=== PATIENT | female | born 1980 | race Caucasian/White ===

== ENCOUNTER 2020-09-14 20:37 | Emergency (ER) | payer OTHER ==
[~2020-09-14 20:37] MED LIST: NORCO 5-325 TA1 EACH PO; PENICILLIN V P500 MG PO
[2020-09-14] MEDS ORDERED: CEPHALEXIN500 M1 PO (21:48)
[2020-09-14] MEDS ORDERED: BACTRIM DS TAB1 EACH PO (21:48)
== END 2020-09-14 22:00 | disposition home or self-care (01) ==
LOC: FER 20:37
DX: L03.012 Cellulitis of left finger (principal); I10 Essential (primary) hypertension; Z23 Encounter for immunization
CPT/HCPCS: 90471; 90715; 99283

== ENCOUNTER 2021-12-27 19:33 | Emergency (ER) | payer SELFPAY ==
[~2021-12-27 19:33] MED LIST changes: +BACTRIM DS TAB1 EACH PO; +CEPHALEXIN500 M1 PO
[2021-12-27 23:13] LABS: BILIRUBIN NEGATIVE (NEGATIVE); BLOOD NEGATIVE Ery/uL (NEGATIVE); CLARITY CLEAR (CLEAR); COLOR YELLOW (YELLOW); GLUCOSE (U) NORMAL (NORMAL); LEUKOCYTES NEGATIVE Leu/uL (NEGATIVE); NITRITE NEGATIVE (NEGATIVE); PROTEIN NEGATIVE (NEGATIVE); UROBILINOGEN 0.2 mg/dL (0.2-1.0)
[2021-12-27 23:28] LABS: INFLUENZA A NAA NEGATIVE (NEGATIVE)
[2021-12-27 23:31] LABS: CORONAVIRUS 2019 SARS-COV-2 POSITIVE (NEGATIVE)
[2021-12-27] MEDS ORDERED: AZITHROMYCIN250 MG PO (23:52)
[2021-12-27] MEDS ORDERED: PREDNISONE 20MG20 MG PO (23:52)
== END 2021-12-28 00:04 | disposition home or self-care (01) ==
LOC: FER 19:33
PROVIDERS: Nurse Practitioner Family
DX: U07.1 COVID-19 (principal); F17.210 Nicotine dependence, cigarettes, uncomplicated
CPT/HCPCS: 71045; 81003; J1100; U0002

== ENCOUNTER 2022-01-02 18:47 | Emergency (ER) | payer SELFPAY ==
[~2022-01-02 18:47] MED LIST changes: +AZITHROMYCIN250 MG PO; +PREDNISONE 20MG20 MG PO
[2022-01-02] MEDS ORDERED: ONDANSETRON HCL4 MG PO (19:48)
== END 2022-01-02 19:55 | disposition home or self-care (01) ==
LOC: FER 18:47
DX: U07.1 COVID-19 (principal); F17.210 Nicotine dependence, cigarettes, uncomplicated; Z28.310 Unvaccinated for COVID-19
CPT/HCPCS: 99283